=== PATIENT | female | born 1995 | race American Indian/Alaskan Native ===

== ENCOUNTER 2016-05-17 10:53 | Emergency (ER) | payer SELFPAY ==
[2016-05-17 12:12] VITALS: BP 128/81
--- NOTE | 2016-05-17 12:27 | Emergency Department Report ---
Chief Complaint: Abdominal Pain Stated Complaint: ABDOMINAL PAIN Time Seen by Provider: 05/17/16 12:22 - HPI History of Present Illness: 20-year-old -[place] female comes in with abdominal pain 1 week. She reports that the pain is crampy. She denies being on her menses. No nausea no vomiting she does admit to diarrhea starting yesterday and continuing to today. Denies any fever denies any chills. - Exam Vital Signs: Vital Signs 05/17/16 12:05 Temperature 98.2 F Pulse Rate 73 Respiratory 18 Rate Blood Pressure 128/81 O2 Sat by Pulse 100 Oximetry Physical Exam: Since alert and oriented 3 cardiovascular S1-S2 regular rate and rhythm respiratory clear to bilateral abdomen soft nontender nondistended bowel sounds throughout. MSE screening note: Focused history and physical exam performed. Due to findings the following was ordered: Abdominal protocol ordered. Patient be evaluated in the main ER by the main doctors. ED Disposition for MSE Condition: Stable Instructions: Abdominal Pain (ED)
[2016-05-17 12:51] LABS: Basophils % (Auto) 0.5 % (0.0-1.8); Eosinophils % (Auto) 0.7 % (0.0-4.3); Hematocrit 39.9 % (30.3-42.9); Hemoglobin 12.9 gm/dl (10.1-14.3); Mean Corpuscular HGB Conc 32 % (30-34); Mean Corpuscular Volume 78 fl (79-97); Platelet Count 210 K/mm3 (140-440); Red Cell Distribution Width 14.4 % (13.2-15.2); White Blood Count 9.3 K/mm3 (4.5-11.0)
[2016-05-17 12:54] LABS: Mean Corpuscular Hemoglobin 25 pg (28-32)
[2016-05-17 13:11] LABS: Alanine Aminotransferase 9 units/L (7-56); Albumin/Globulin Ratio 1.3 %; Alkaline Phosphatase 55 units/L (35-129); Anion Gap 19 mmol/L; Bilirubin,Total 0.3 mg/dL (0.1-1.2); Blood Urea Nitrogen 7 mg/dL (7-17); Calcium 9.1 mg/dL (8.4-10.2); Carbon Dioxide 23 mmol/L (22-30); Chloride 101.6 mmol/L (98-107); Glucose 68 mg/dL (65-100); Lipase 29 units/L (13-60); Potassium 4.6 mmol/L (3.6-5.0); Sodium 139 mmol/L (137-145); Total Protein 7.1 g/dL (6.3-8.2)
[2016-05-17 13:29] LABS: Bilirubin,Urine NEG (Negative); Blood,Urine NEG (Negative); Ketones,Urine NEG (Negative); Leukocyte Esterase,Urine TR (Negative); Mucus,Urine FEW /HPF; Nitrite,Urine NEG (Negative); Protein,Urine <15 mg/dL mg/dL (Negative); Urobilinogen,Urine < 2.0 mg/dL (<2.0)
--- NOTE | 2016-05-17 15:18 | Ultrasound Report ---
FINAL REPORT PROCEDURE: US OB \T\lt; = 14 WEEKS FETUS TECHNIQUE: Real-time transabdominal sonography of the uterus, placenta, amniotic fluid, adnexa, and fetus was performed with image documentation. Measurements were obtained to determine age/size. M-mode Doppler was used to document heartbeat. CPT 44344 HISTORY: abd pain, COMPARISON: No prior studies are available for comparison. FINDINGS: Uterus 7.9 centimeters CRL: No embryonic pole seen at this time Yolk Sac: Not seen at this time Embryonic Cardiac Activity: Not seen at this time Gestational Sac: Early gestational sac measures 3 millimeters consistent with 5 week 0 day age Amniotic fluid: Normal. Cervix: Normal. Right Ovary: 4.3 x 2.7 centimeter normal flow 2.5 centimeter solid mass in the right adnexa with peripheral color flow of indeterminate etiology. There is moderate peripheral color flow ring and this could reflect an ectopic which is the diagnosis of exclusion. Followup and further workup is advised. Other considerations include but not limited to complex corpus luteum cyst of Left Ovary: 3.1 x 1.8 centimeters with normal flow. Estimated delivery date: 01/17/2017 Free fluid: Minimal IMPRESSION: Single small empty intrauterine gestational sac No embryonic pole or heart tones seen Indeterminate right adnexal mass for which followup is advised and for which ectopic is the diagnosis of exclusion Minimal free fluid Followup is advised
--- NOTE | 2016-05-17 15:20 | Ultrasound Report ---
FINAL REPORT PROCEDURE: US OB TRANSVAGINAL TECHNIQUE: Real-time transvaginal sonography of the uterus, placenta, amniotic fluid, adnexa, and fetus was performed with image documentation. Measurements were obtained to determine age/size. M-mode Doppler was used to document heartbeat. CPT 90661 HISTORY: with cramping COMPARISON: No prior studies are available for comparison. FINDINGS: CRL: No embryonic pole seen Yolk Sac: Not seen at this time Embryonic Cardiac Activity: Not seen at this time Gestational Sac: 3 millimeter empty intrauterine gestational sac consistent with 5 week 0 day age Right Ovary: 4.3 x 2.7 centimeters with normal flow. 2.5 centimeter solid mass with peripheral flow indeterminate but may reflect ectopic for which followup and further workup is advised Left Ovary: 3.1 x 1.8 centimeters with normal flow Estimated delivery date: 01/17/2017 Comment: Minimal free fluid IMPRESSION: 1. Single empty intrauterine gestational sac 2. Indeterminate mass right adnexa 3. Followup is advised
--- NOTE | 2016-05-17 18:12 | Emergency Department Report ---
HPI - General Chief Complaint: Abdominal Pain Time Seen by Provider: 05/17/16 12:22 - HPI HPI: This is a 20-year-old Afro-[place] female presents to the emergency department with complaint of a 1 week history of some mid abdominal cramping and a 2 day history of some diarrhea. She denies any problems with urination, back pain, fever, nausea, vomiting, vaginal bleeding or discharge. She took some ibuprofen for discomfort with some relief. No recent travel or sick contacts at home. She has no past medical or surgical history. She does not have a primary care doctor or ANESTHESIOLOGY TEACHER. ED Past Medical Hx - Past Medical History Previous Medical History?: No - Surgical History Past Surgical History?: No - Social History Smoking Status: Current Every Day Smoker Substance Use Type: Alcohol - Medications Home Medications: Home Medications Medication Instructions Recorded Confirmed Last Taken Type Vit No.130/Iron/FA 1 each PO QDAY #30 tablet 05/17/16 Unknown Rx [ Tablet] ED Review of Systems ROS: Stated complaint: ABDOMINAL PAIN Other details as noted in HPI Comment: All other systems reviewed and negative Constitutional: denies: chills, fever Eyes: denies: eye pain, eye discharge, vision change ENT: denies: ear pain, throat pain Respiratory: denies: cough, shortness of breath, wheezing Cardiovascular: denies: chest pain, palpitations Gastrointestinal: abdominal pain, diarrhea. denies: nausea, vomiting Genitourinary: denies: dysuria, discharge Musculoskeletal: denies: back pain, joint swelling, arthralgia Skin: denies: rash, lesions Neurological: denies: headache, weakness, paresthesias Physical Exam - Physical Exam Vital Signs: Vital Signs 05/17/16 12:05 Temperature 98.2 F Pulse Rate 73 Respiratory 18 Rate Blood Pressure 128/81 O2 Sat by Pulse 100 Oximetry Physical Exam: GENERAL: The patient is well-developed well-nourished. HEENT: Normocephalic. Atraumatic. Extraocular motions are intact. Patient has moist mucous membranes. Pupils equal reactive to light bilaterally. NECK: Supple. Trachea is midline. CHEST/LUNGS: Clear to auscultation. There is no respiratory distress noted. HEART/CARDIOVASCULAR: Regular. There is no tachycardia. There is no gallop rub or murmur. ABDOMEN: Abdomen is soft, nontender. Unable to reproduce cramping to palpation. Patient has normal bowel sounds. There is no abdominal distention. SKIN: Warm and dry. NEURO: The patient is awake, alert, and oriented. The patient is cooperative. The patient has no focal neurologic deficits. The patient has normal speech and gait. MUSCULOSKELETAL: There is no tenderness or deformity. There is no limitation range of motion. There is no evidence of acute injury. ED Course Vital Signs 05/17/16 12:05 Temperature 98.2 F Pulse Rate 73 Respiratory 18 Rate Blood Pressure 128/81 O2 Sat by Pulse 100 Oximetry - Consultations Consultation #1: I spoke with the ANESTHESIOLOGY TEACHER on-call, Dr. Fernandez, regarding the patient's case presentation, hormone level and the ultrasound findings that show a empty intrauterine gestational sac as well as a right ovarian mass with peripheral flow. He agrees that it is very rare for someone to have both a intrauterine and a ectopic . He feels that it was most likely a corpus luteal cyst. However he recommends that the patient follow up without fail in 48 hours for a repeat hormone level and ultrasound. 05/17/16 18:24 ED Medical Decision Making - Lab Data Result diagrams: 05/17/16 12:36 05/17/16 12:36 - Radiology Data Radiology results: report reviewed Transvaginal/ ultrasound shows a 2.5 cm solid mass with peripheral flow that is indeterminate within the right ovary but may reflect ectopic . There is a single empty intrauterine gestational sac that would correlate with 5 weeks and 0 days gestational age. - Medical Decision Making 20-year-old female presents with 1 week of abdominal cramping and 1-2 days of diarrhea. As part of the patient's workup she was found to be and had a quantitative beta hCG level of 460. A transvaginal/ ultrasound was done that shows a intrauterine gestational sac that is otherwise empty but correlate with a gestational age of about 5 weeks, as well as a 2.5 cm solid mass within the right ovary with some peripheral flow that is indeterminate. The rest the patient's labs are unremarkable. Patient's abdomen is soft and nontoxic on physical exam. After speaking with the ANESTHESIOLOGY TEACHER on-call, the patient will return in 48 hours without fail for a repeat hormone level and ultrasound. Patient was given some cautionary signs to look for for possible ectopic including sharper abdominal pain and she will return to the ER if she develops any of this or any acute distress. Patient will be started on vitamins and will not take anything other than Tylenol for discomfort in the meantime. - Differential Diagnosis , miscarriage, ectopic, fibroid Critical Care Time: No Critical care attestation.: If time is entered above; I have spent that time in minutes in the direct care of this critically ill patient, excluding procedure time. ED Disposition Clinical Impression: Ovarian mass, right Qualifiers: Weeks of gestation: less than 8 weeks Qualified Code(s): Z3A.01 - Less than 8 weeks gestation of Disposition: DISCHARGED TO HOME OR SELFCARE Is pt being admited?: No Condition: Stable Instructions: (ED) Additional Instructions: He was seen today for your abdominal cramping and diarrhea. You were found to have an elevated hormone level. The ultrasound shows a intrauterine gestational sac which could be correlating with a early . There was also some indeterminant small right ovarian mass that needs further evaluation. For this reason he will need to return to the emergency department in 48 hours for a repeat hormone level and a transvaginal/ ultrasound to further evaluate this and this ovarian mass. If he develop any sharp intense abdominal pains, or with any acute distress, he should return to the emergency department immediately. You will be started on vitamins. You can take Tylenol every 4 hours, as needed for discomfort, using weight-based dosing. Otherwise do not take any medications that are not prescribed by a physician. Prescriptions: Vit No.130/Iron/FA [ Tablet] 1 each PO QDAY #30 tablet Referrals: ANA ROMERO MD [Primary Care Provider] - 3-5 Days JANNETTE FERNANDEZ MD [Staff Physician] - 3-5 Days Time of Disposition: 18:29
== END 2016-05-17 18:41 | disposition home or self-care (01) ==
LOC: ED 10:53
DX: O26.891 Other specified pregnancy related conditions, first trimester (principal); N83.9 Noninflammatory disorder of ovary, fallopian tube and broad ligament, unspecified; F17.200 Nicotine dependence, unspecified, uncomplicated; Z3A.01 Less than 8 weeks gestation of pregnancy
CPT/HCPCS: 36415; 76801; 76817; 80053; 81001; 81025; 83690; 84702; 85025

== ENCOUNTER 2016-05-19 08:34 | Emergency (ER) | payer MEDICAID ==
--- NOTE | 2016-05-19 09:24 | Emergency Department Report ---
HPI - General Chief Complaint: Abdominal Pain Time Seen by Provider: 05/19/16 09:18 - HPI HPI: This is a 20-year-old Afro[place]Citizen [place] female presents to the emergency department as a follow-up from a possible a few days ago. At that time she was here for some abdominal cramping and was found to be . She had an ultrasound that showed a gestational sac intrauterine without any yolk sac or pole, but there was also a nonspecific right ovarian mass with some peripheral blood flow seen on ultrasound. She had a low beta hCG at that time. She was instructed to either follow up with CONTRACT ADMINISTRATION MANAGER or return to the emergency department for a repeat hormone level and ultrasound, and that is what she is here for today. The abdominal cramping is continued but she denies any vaginal bleeding, nausea, vomiting, fever, back pain. She is not taken any further medications and did not fill the vitamins prescribed for her. ED Past Medical Hx - Past Medical History Previous Medical History?: Yes Additional medical history: , Right ovary mass - Surgical History Past Surgical History?: No - Social History Smoking Status: Current Every Day Smoker Substance Use Type: Alcohol, Marijuana - Medications Home Medications: Home Medications Medication Instructions Recorded Confirmed Last Taken Type Vit No.130/Iron/FA 1 each PO QDAY #30 tablet 05/17/16 05/19/16 Unknown Rx [ Tablet] ED Review of Systems ROS: Stated complaint: F/U Other details as noted in HPI Comment: All other systems reviewed and negative Constitutional: denies: chills, fever Eyes: denies: eye pain, eye discharge, vision change ENT: denies: ear pain, throat pain Respiratory: denies: cough, shortness of breath, wheezing Cardiovascular: denies: chest pain, palpitations Gastrointestinal: abdominal pain. denies: nausea, vomiting Genitourinary: denies: urgency, dysuria, discharge Musculoskeletal: denies: back pain, joint swelling, arthralgia Skin: denies: rash, lesions Neurological: denies: headache, weakness, paresthesias Physical Exam - Physical Exam Vital Signs: Vital Signs 05/19/16 08:46 Temperature 98.1 F Pulse Rate 70 Respiratory 16 Rate Blood Pressure 119/73 O2 Sat by Pulse 100 Oximetry Physical Exam: GENERAL: The patient is well-developed well-nourished. HEENT: Normocephalic. Atraumatic. Extraocular motions are intact. Patient has moist mucous membranes. Pupils equal reactive to light bilaterally. NECK: Supple. Trachea is midline. CHEST/LUNGS: Clear to auscultation. There is no respiratory distress noted. HEART/CARDIOVASCULAR: Regular. There is no tachycardia. There is no gallop rub or murmur. ABDOMEN: Abdomen is soft, nontender. Patient has normal bowel sounds. There is no abdominal distention. SKIN: Warm and dry. NEURO: The patient is awake, alert, and oriented. The patient is cooperative. The patient has no focal neurologic deficits. The patient has normal speech. MUSCULOSKELETAL: There is no tenderness or deformity. There is no limitation range of motion. There is no evidence of acute injury. ED Course Vital Signs 05/19/16 08:46 Temperature 98.1 F Pulse Rate 70 Respiratory 16 Rate Blood Pressure 119/73 O2 Sat by Pulse 100 Oximetry ED Medical Decision Making - Lab Data Result diagrams: 05/19/16 09:35 - Radiology Data Radiology results: report reviewed Transvaginal/ ultrasound shows a probable early intrauterine with no evidence of yolk sac or pole at this time. There is a 2.1 cm hypoechoic lesion in the right ovary which may represent a complex corpus luteum cyst. - Medical Decision Making 20-year-old female presents to the emergency department as a follow-up from 2 days ago for a repeat hormone level and transvaginal/ ultrasound. Patient' s hormone level has more than doubled since she was here 2 days ago. The ultrasound once again shows a gestational sac without any further development but is most likely an early . There was some concern for a right ovarian mass that had some blood flow on the last ultrasound and it is still there at 2 cm but appears most likely be a corpus luteum cyst. Respirations labs are unremarkable. Vital signs stable throughout ED course. Patient is already starting vitamins. She understands not to take any other medications besides Tylenol or things that are prescribed by physician. She has an appointment with an CONTRACT ADMINISTRATION MANAGER at [facility] on . She' ll return to the ER with any worsening of her symptoms, sharp abdominal pain, vaginal bleeding or any acute distress. - Differential Diagnosis , corpus luteal cyst, fibroids, UTI, miscarriage Critical Care Time: No Critical care attestation.: If time is entered above; I have spent that time in minutes in the direct care of this critically ill patient, excluding procedure time. ED Disposition Clinical Impression: Qualifiers: Weeks of gestation: less than 8 weeks Qualified Code(s): Z3A.01 - Less than 8 weeks gestation of Disposition: DISCHARGED TO HOME OR SELFCARE Is pt being admited?: No Condition: Good Instructions: (ED) Additional Instructions: Please follow-up with the CONTRACT ADMINISTRATION MANAGER on as previously scheduled. Start your vitamins. Return to the emergency department with any worsening of her symptoms, including any sharp abdominal pain and/or vaginal bleeding, or any acute distress. Do not take any medications that are not prescribed by a physician listed as Tylenol. And the Tylenol should be used only as needed with weight-based dosing. Referrals: PRIMARY CARE [Primary Care Provider] - 3-5 Days Time of Disposition: 12:29
[2016-05-19 09:55] LABS: Basophils % (Auto) 0.5 % (0.0-1.8); Eosinophils % (Auto) 0.5 % (0.0-4.3); Hematocrit 39.1 % (30.3-42.9); Hemoglobin 12.3 gm/dl (10.1-14.3); Mean Corpuscular HGB Conc 31 % (30-34); Mean Corpuscular Volume 79 fl (79-97); Platelet Count 211 K/mm3 (140-440); Red Blood Count 4.92 M/mm3 (3.65-5.03); Red Cell Distribution Width 14.8 % (13.2-15.2); White Blood Count 8.2 K/mm3 (4.5-11.0)
[2016-05-19 10:01] LABS: Mean Corpuscular Hemoglobin 25 pg (28-32)
--- NOTE | 2016-05-19 12:02 | Ultrasound Report ---
Transabdominal and transvaginal OB ultrasound. Findings: A sonolucency in the endometrial cavity measures 4.7 mm in diameter. This would correlate with a gestational sac age of 5 weeks 2 days. A pole or yolk sac are not identified at this time. There is a 2.1 cm in diameter hypoechoic lesion in the right ovary which may represent a complex corpus luteum cyst. The left ovary is normal. No fluid is seen within the cul-de-sac. Impression: Probable early IUP with no evidence of yolk sac or pole at this time. A short-term followup study in 5-7 days may be useful.
[2016-05-19 12:43] VITALS: BP 128/78
== END 2016-05-19 12:46 | disposition home or self-care (01) ==
LOC: ED 08:34
DX: O26.891 Other specified pregnancy related conditions, first trimester (principal); O99.331 Smoking (tobacco) complicating pregnancy, first trimester; R10.9 Unspecified abdominal pain; Z3A.01 Less than 8 weeks gestation of pregnancy; F12.10 Cannabis abuse, uncomplicated; F17.200 Nicotine dependence, unspecified, uncomplicated
CPT/HCPCS: 36415; 76801; 76817; 84702; 85025

== ENCOUNTER 2016-07-20 09:50 | Emergency (ER) | payer MEDICAID ==
[2016-07-20 10:07] VITALS: BP 110/72
--- NOTE | 2016-07-20 10:13 | Emergency Department Report ---
Chief Complaint: Syncope Stated Complaint: PASSED OUT Time Seen by Provider: 07/20/16 10:09 - HPI History of Present Illness: 13 w 5 day no vag bleed or dc no abd pain dizzy at school today did see ob and they heard hr. she did not eat this am after dizzy spell she ate and feels better taking prenat vit and smoking no pmh no surg hx no vomiting g1- first preg - Exam Vital Signs: Vital Signs 07/20/16 10:03 Temperature 98.2 F Pulse Rate 92 H Respiratory 16 Rate Blood Pressure 110/72 O2 Sat by Pulse 100 Oximetry Physical Exam: no focal neuro MSE screening note: Focused history and physical exam performed. Due to findings the following was ordered: ED Disposition for MSE Condition: Stable
[2016-07-20 11:28] LABS: Bilirubin,Urine NEG (Negative); Blood,Urine NEG (Negative); Ketones,Urine NEG (Negative); Leukocyte Esterase,Urine NEG (Negative); Mucus,Urine FEW /HPF; Nitrite,Urine NEG (Negative); Urobilinogen,Urine < 2.0 mg/dL (<2.0)
== END 2016-07-20 10:40 | disposition left against medical advice (07) ==
LOC: ED 09:50
DX: R55 Syncope and collapse (principal); Z53.21 Procedure and treatment not carried out due to patient leaving prior to being seen by health care provider
CPT/HCPCS: 81001; 82962